=== PATIENT | female | born 1945 | race Caucasian/White ===

== ENCOUNTER 2020-10-24 20:27 | Inpatient (IN) | payer MEDICARE ==
[~2020-10-24] VITALS: Ht 154.9 cm; Wt 109.7 kg
--- NOTE | 2020-10-24 20:51 | PHYS DOC ---
Past History Past Medical History: A-Fib, Anemia, Anxiety, Arthritis, CAD, CHF, Diabetes General Adult EDM: Chief Complaint: DYSPNEA/RESPIRATOY DISTRESS HPI: HPI: ".. I ve been feeling bad .. the last two weeks.. been short of breath.. like when I had Afib... tonight my heart is really fast.. and I am more short of breath..." Patient is a 75 year old female who presents with above hx and complaints of dyspnea, fatigue, malaise, rapid heart rate, irregular heart rate, and weakness. Patient states she has had a history of A. fib or irregular heart rate in the past. Has been taking Eliquis. No history of changes in meds. No excessive caffeine use. Patient does have a history of anemia, diabetes, CHF and arthritis. No recent travel. No specific ill contacts.. Patient normally follows with Dr. Maryjane Rosen as a primary. . Review of Systems: Review of Systems: Constitutional: Denies fever or chills Eyes: Denies change in visual acuity HENT: Denies nasal congestion or sore throat Respiratory: Denies cough or shortness of breath Cardiovascular: Complaints of chest discomfort and irregular rhythm . GI: Denies abdominal pain, nausea, vomiting, bloody stools or diarrhea : Denies dysuria Musculoskeletal: Denies back pain or joint pain Integument: Denies rash Neurologic: Denies headache, focal weakness or sensory changes Endocrine: Denies polyuria or polydipsia Lymphatic: Denies swollen glands Psychiatric: Denies depression or anxiety Family History: Family History: Noncontributory to presentation Current Medications: Current Meds: See nursing for home meds Allergies: Allergies: No known drug allergies Physical Exam: PE: Constitutional: Moderate acute distress, non-toxic appearance. [] HENT: Normocephalic, atraumatic, bilateral external ears normal, oropharynx moist, no oral exudates, nose normal. [] Eyes: PERRLA, EOMI, conjunctiva normal, no discharge. Glasses Neck: Normal range of motion, no tenderness, supple, no stridor. [] Cardiovascular: Irregular heart rate and irregular rhythm, no murmur [] PMI to the left. Monitor at bedside shows A. fib with rapid ventricular response of 120's Lungs & Thorax: Bilateral breath sounds equal apex and basilar crackles on auscultation [] Abdomen: Bowel sounds decreased, soft, no tenderness, no masses, no pulsatile masses. Obese. Skin: Warm, dry, no erythema, no rash. [] Back: No tenderness, no CVA tenderness. [] Extremities: No tenderness, no cyanosis, no clubbing, ROM intact, no edema. [] Neurologic: Alert and oriented X 3, normal motor function, normal sensory function, no focal deficits noted. [] Psychologic: Affect normal, judgement normal, mood normal. [] Current Patient Data: Vital Signs: Vital Signs Date Time Temp Pulse Resp B/P (MAP) Pulse Ox O2 Delivery O2 Flow Rate FiO2 10/24/20 20:47 98.4 103 22 162/78 (106) 98 Room Air EKG: EKG: [] Radiology/Procedures: Radiology/Procedures: [][address] [address] IMAGING REPORT Signed PATIENT: LISBET COBB ACCOUNT: [id number] : 1945 LOCATION: ER AGE: 75 SEX: F EXAM STATUS: REG ER ORD. PHYSICIAN: EDILIA CÁRDENAS MD REASON: dyspnea PROCEDURE: PORTABLE CHEST 1V Chest AP portable 10/24/2020. Reason for exam: Dyspnea. There is no consolidation, but there is some haziness especially on the right, and early infiltrate or edema is possible. No pleural fluid is seen. The heart is enlarged. IMPRESSION: Cardiomegaly. Mild pulmonary haziness on the right. Electronically signed by: Anastasia Patel Jr., MD (10/24/2020 9:44 PM) [facility] DICTATED AND SIGNED BY: ANASTASIA PATEL Jr, MD DATE: 10/24/202142 CC: EDILIA CÁRDENAS MD; NON,STAFF ~MTH0 0 Heart Score: C/O Chest Pain: No HEART Score for Chest Pain: HEART Score for Chest Pain Response (Comments) Value History Moderately Suspicious 1 ECG Nonspecific Repolarizatio 1 Age > 65 2 Risk Factors 1 or 2 Risk Factors 1 Total 5 Risk Factors: Risk Factors: DM, Current or recent (<one month) smoker, HTN, HLP, family history of CAD, obesity. Risk Scores: Score 0 - 3: 2.5% MACE over next 6 weeks - Discharge Home Score 4 - 6: 20.3% MACE over next 6 weeks - Admit for Clinical Observation Score 7 - 10: 72.7% MACE over next 6 weeks - Early Invasive Strategies Course & Med Decision Making: Course & Med Decision Making Pertinent Labs and Imaging studies reviewed. (See chart for details) Discussed presentation, testing and tx. plan with Wayne Aquino- Admit with cardiology consult. Impression:: 1. Chest pain 2. A. fib with rapid ventricular response 3. CHF BNP 1206 4. Anemia hemoglobin 8.6 5. Diabetes glucose 180 6. Urinary tract infection [] Dragon Disclaimer: Dragon Disclaimer: This electronic medical record was generated, in whole or in part, using a voice recognition dictation system. EDILIA CÁRDENAS MD Oct 24, 2020 20:51
[2020-10-24] MEDS ORDERED: dilTIAZem VIAL 125 MG in IV NORMAL SALINE 100ML 100 ML IV ONE (21:30)
[2020-10-24] MEDS ORDERED: ASPIRIN CHEWABLE 81 MG TABLET. PO ONE (21:30)
[2020-10-24] MEDS ORDERED: dilTIAZem 25 MG/5 ML VIAL IVP ONE ×2 (21:30)
[2020-10-24] MEDS ORDERED: IV RINGERS SOLUTION,LACTATED 1,000 ML IV SCH (21:30)
--- NOTE | 2020-10-24 21:46 | RAD ---
Chest AP portable 10/24/2020. Reason for exam: Dyspnea. There is no consolidation, but there is some haziness especially on the right, and early infiltrate o r edema is possible. No pleural fluid is seen. The heart is enlarged. IMPRESSION: Cardiomegaly. Mild pulmonary haziness on the right. Electronically signed by: Rafal Patel Jr., MD (10/24/2020 9:44 PM) [facility]
[2020-10-24 21:53] LABS: BASO % 1 % (0-3); EOS # 0.1 x10^3/uL (0.0-0.7); EOS % 1 % (0-3); HEMATOCRIT 27.4 % (36.0-47.0); HEMOGLOBIN 8.6 g/dL (12.0-15.5); LYMPH % 12 % (24-48); MEAN CORPUSCULAR HEMOGLOBIN 27 pg (25-35); MEAN CORPUSCULAR HGB CONC 31 g/dL (31-37); MEAN CORPUSCULAR VOLUME 87 fL (79-100); MONO # 0.8 x10^3/uL (0.0-1.1); MONO % 9 % (0-9); NEUT # 6.5 x10^3uL (1.8-7.7); NEUT % 77 % (31-73); PLATELET COUNT 228 x10^3/uL (140-400); RED BLOOD COUNT 3.16 x10^6/uL (3.50-5.40); RED CELL DISTRIBUTION WIDTH 16.7 % (11.5-14.5); WHITE BLOOD COUNT 8.4 x10^3/uL (4.0-11.0)
[2020-10-24 22:02] LABS: BARBITURATES NEG (NEG); BENZODIAZEPINES NEG (NEG); CANNABINOIDS NEG (NEG); COCAINE NEG (NEG); METHADONE NEG (NEG); OPIATES NEG (NEG); PHENCYCLIDINE NEG (NEG)
[2020-10-24 22:04] LABS: CALCIUM 9.4 mg/dL (8.5-10.1); GFR 53.9; POTASSIUM 4.1 mmol/L (3.5-5.1)
[2020-10-24 22:05] LABS: BILIRUBIN,URINE NEG (NEG); CLARITY,URINE CLEAR; COLOR,URINE YELLOW; GLUCOSE,URINE NEG (NEG); NITRITE,URINE NEG (NEG)
[2020-10-24 22:06] LABS: BACTERIA,URINE MOD /HPF (0-FEW); RBC,URINE OCC /HPF (0-2); SQUAMOUS EPITHELIAL CELL,UR MOD /LPF; WBC,URINE >40 /HPF (0-4)
[2020-10-24 22:07] LABS: AMPHETAMINE/METHAMPHETAMINE NEG (NEG)
[2020-10-24 22:23] LABS: ALBUMIN 3.9 g/dL (3.4-5.0); DIRECT BILIRUBIN 0.1 mg/dL (0.0-0.2); MAGNESIUM 1.6 mg/dL (1.8-2.4); TOTAL BILIRUBIN 0.3 mg/dL (0.2-1.0)
[2020-10-24] MEDS ORDERED: IV NORMAL SALINE 100ML 100 ML ONE (22:29)
[2020-10-24] MEDS ORDERED: ONDANSETRON PF 4 MG/2 ML VIAL. IVP PRN (23:45)
[2020-10-24] MEDS ORDERED: ACETAMINOPHEN 325 MG TABLET PO PRN ×2 (23:45)
[2020-10-24] MEDS ORDERED: diphenhydrAMINE ORAL ELIXIR 12.5 MG/5 ML ML PO PRN (23:45)
[2020-10-24] MEDS ORDERED: diphenhydrAMINE HCL 25 MG CAPSULE PO PRN (23:45)
[2020-10-24] MEDS ORDERED: MORPHINE SULFATE 2 MG/ML DISP.SYRIN. IVP PRN (23:45)
[2020-10-25] VITALS (21 sets, daily range): BP systolic 120–159; BP diastolic 41–84
[2020-10-25] MEDS ORDERED: IV NORMAL SALINE 50ML 50 ML ONE (00:25)
[2020-10-25] MEDS ORDERED: cefTRIAXone SODIUM 1 GM VIAL ONE (00:25)
[2020-10-25] MEDS ORDERED: diphenhydrAMINE 50 MG/ML VIAL IV ONE (00:30)
[2020-10-25] MEDS ORDERED: dilTIAZem VIAL 125 MG in IV NORMAL SALINE 100ML 100 ML IV ONE (00:30)
[2020-10-25] MEDS ORDERED: FUROSEMIDE 40 MG/4 ML VIAL IVP ONE (00:30)
[2020-10-25 00:57] LABS: CALCIUM 9.1 mg/dL (8.5-10.1); GFR 53.9; POTASSIUM 4.1 mmol/L (3.5-5.1)
--- NOTE | 2020-10-25 03:38 | EKG ---
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
[2020-10-25] MEDS ORDERED: MAGNESIUM SULFATE 2GM 50 ML IV ONE (04:30)
[2020-10-25] MEDS ORDERED: APIX5TAB3 PO (05:39)
[2020-10-25] MEDS ORDERED: LEVO50TA5 PO (05:39)
[2020-10-25] MEDS ORDERED: CARV6.2541 PO (05:39)
[2020-10-25] MEDS ORDERED: FAMO40TA4 PO (05:39)
[2020-10-25] MEDS ORDERED: LOVA20TA2 PO (05:39)
[2020-10-25] MEDS ORDERED: MIRT7.5T8 PO (05:39)
[2020-10-25] MEDS ORDERED: PIOG15TA42 PO (05:39)
[2020-10-25] MEDS: ASPIRIN CHEWABLE 81 MG TABLET. PO SCH (07:57)
[2020-10-25] MEDS ORDERED: IPRATRPIUM/ALBUTEROL 0.5/2.5MG 3 ML NEBU. NEB SCH (08:00)
[2020-10-25] MEDS: IPRATROPIUM/ALBUTEROL 20/100mcg/INH INHALER. INH SCH ×4 (08:00→20:51)
[2020-10-25 10:04] LABS: BASO # 0.1 x10^3/uL (0.0-0.2); BASO % 1 % (0-3); EOS # 0.1 x10^3/uL (0.0-0.7); EOS % 1 % (0-3); HEMATOCRIT 25.8 % (36.0-47.0); HEMOGLOBIN 8.2 g/dL (12.0-15.5); LYMPH # 1.1 x10^3/uL (1.0-4.8); LYMPH % 13 % (24-48); MEAN CORPUSCULAR HEMOGLOBIN 27 pg (25-35); MEAN CORPUSCULAR HGB CONC 32 g/dL (31-37); MEAN CORPUSCULAR VOLUME 86 fL (79-100); MONO # 1.1 x10^3/uL (0.0-1.1); MONO % 12 % (0-9); NEUT # 6.2 x10^3uL (1.8-7.7); NEUT % 73 % (31-73); PLATELET COUNT 244 x10^3/uL (140-400); WHITE BLOOD COUNT 8.5 x10^3/uL (4.0-11.0)
[2020-10-25 12:32] LABS: GFR 53.9; POTASSIUM 3.6 mmol/L (3.5-5.1)
--- NOTE | 2020-10-25 19:02 | HP ---
ADMIT DATE: 10/25/2020 HISTORY OF PRESENT ILLNESS: The patient is a 75-year-old female patient who came to the Emergency Room complaining that she is feeling progressively short of breath for the last 2 weeks. She denied any chest pain. Did complain of orthopnea and paroxysmal nocturnal dyspnea. She stated that she has been sleeping in her recliner, cannot sleep in her bed. She also complained of malaise and palpitation. The patient has had a history of AFib in the past and has been on Eliquis. There is no history of any change in medication and excessive caffeine. Does have a history of anemia, type 2 diabetes, and congestive heart failure. Denied any recent travel or specific ill contact. The patient follows with Dr. Susan Hutson as a primary care physician. She was extensively evaluated in the Emergency Room and apparently her EKG showed that she was in atrial fibrillation with rapid ventricular response and was admitted with congestive heart failure, anemia, and possible urinary tract infection. She has had extensive investigation in the Emergency Room including a CBC. Her chemistry showed she has hyperglycemia as well as elevated beta natriuretic peptide. Her D-dimer was only 0.32. Urinalysis showed that there was a trace of leukocyte esterase, no rbc's, more than 40 wbc's and moderate amount of bacteria and toxic screen was essentially negative. Her chest x-ray showed that the patient has cardiomegaly and mild pulmonary haziness on the right, indicating an early infiltrate or edema is possible. No pleural fluid is seen. The heart is enlarged. PAST MEDICAL HISTORY: Significant for hypertension, hyperlipidemia, hemorrhoids, osteoarthritis, history of right lower extremity DVT, urinary incontinence, and type 2 diabetes. PAST SURGICAL HISTORY: Significant for cholecystectomy, cataract extraction, tonsillectomy, hysterectomy, hemorrhoidectomy and right index finger tumor removal. FAMILY HISTORY: Noncontributory. SOCIAL HISTORY: She is single, never , has 1 son. She does not smoke, drink alcohol or use any recreational drugs. ALLERGIES: She has no known drug allergies. MEDICATIONS: She is currently on following medications: Apixaban 5 mg twice a day, lovastatin 20 mg at bedtime, carvedilol 6.25 mg once a day, mirtazapine 7.5 mg at bedtime, famotidine 40 mg once a day, pioglitazone ____ mg at bedtime, levothyroxine sodium 50 mcg once a day. FAMILY HISTORY: She has 4 sisters alive and one stage IV of breast cancer. One of her sisters has diabetes mellitus. Her father at the age of 90. Mother in her 70s. PHYSICAL EXAMINATION: GENERAL: On arrival to the Emergency Room, she was pale, but no jaundice, cyanosis or thyromegaly. No jugular venous distention. No lower limb edema. VITAL SIGNS: Her heart rate was 103, blood pressure 162/78, temperature was 98.4, respiratory rate 22, and oxygen saturation was 98% on room air. HEAD, EYES, EARS, NOSE AND THROAT: Showed normocephalic, atraumatic. NECK: Supple. HEART: Showed normal first and second heart sounds. No gallop, rub or murmur. CHEST: Clear to auscultation. No crepitation or rhonchi. ABDOMEN: Distended, soft, nontender. No guarding or rigidity. No organomegaly. All hernial orifice intact. Bowel sounds normal. NEUROLOGIC: She is awake, alert, responding appropriately. All cranial nerves intact. EXTREMITIES: She moves extremities without difficulty. LABORATORY DATA: Her lab work on arrival to the Emergency Room showed that her white cell count was 8400, hemoglobin 8.6, hematocrit 27.4, MCV 87 and platelet count 228,000. Her chemistry showed a serum sodium 141, potassium 4.1, chloride 104, bicarbonate 29, anion gap of 8, BUN 20, creatinine 1, estimated GFR was 54 mL per minute. Her glucose 180, calcium was 9.4, magnesium was 1.6. Total bilirubin, AST, ALT, alkaline phosphatase were normal. Total protein was 8, albumin was 3.9. Lipase was 74. Her prothrombin time, INR and aPTT are normal. Her D-dimer was 0.32. Urinalysis showed the urine was yellow, clear with a pH of 6, specific gravity 1.025. There was a small amount of protein. The urine was negative for glucose, ketones, trace of blood, negative for nitrite and bilirubin. There was trace of leukocyte esterase. The urine was negative for rbc's. There were more than 40 wbc's and moderate amount of bacteria. Her toxic screen was negative. ASSESSMENT AND PLAN: The patient was admitted with progressive shortness of breath, was found to be in atrial fibrillation with rapid ventricular response, for which she was given a bolus of Cardizem and started on Cardizem drip. She has hypomagnesemia for which she received 2 grams of magnesium sulfate and for her UTI and possible pneumonia, she was started on ceftriaxone, was admitted for further evaluation and treatment. We will obviously reconcile all her medication and consulted the admissions assistant and decide on further management accordingly. LUDY VICTOR MD DR: EVENS/blane JOB#: [id number] / [id number]
[2020-10-25] MEDS: LACTOBACILLUS RHAMNOSUS GG 1 CAPSULE. PO SCH (20:49)
[2020-10-25] MEDS: PIOGLITAZONE 15 MG TABLET. PO SCH (20:49)
[2020-10-25] MEDS: MIRTAZAPINE 7.5 MG TABLET. PO SCH (20:49)
[2020-10-25] MEDS: ATORVASTATIN CALCIUM 10 MG TABLET. PO SCH (20:50)
[2020-10-25] MEDS: APIXABAN 5 MG TABLET. PO SCH (20:51)
[2020-10-26] VITALS (13 sets, daily range): BP systolic 128–163; BP diastolic 52–84
[2020-10-26] MEDS: LEVOTHYROXINE 50 MCG TABLET PO SCH (06:07)
[2020-10-26] MEDS: IPRATROPIUM/ALBUTEROL 20/100mcg/INH INHALER. INH SCH ×4 (08:00→20:18)
[2020-10-26] MEDS ORDERED: CARVEDILOL 6.25 MG TABLET PO SCH (08:00)
--- NOTE | 2020-10-26 08:44 | PDOC2 ---
GEORGES SOLITARIO GAS [employer]KER 10/26/20 0844: CARDIAC CONSULT DATE OF CONSULT DOS: DATE: 10/26/20 TIME: 08:29 REASON FOR CONSULT Reason for Consult AFIB RVR, CHF REFERRING PHYSICIAN Referring Physician Dr. Black SOURCE Source: Chart review, Patient HPI History of Present Illness This is a 75 yo female who presented secondary to palpitations and shortness of breath. Has been short of breath for the last couple of weeks. Has a history of AFIB, was noted in RVR and place on Cardizem gtt. Does not follow with security monitor, but is on Eliquis for stroke prophylaxis. Remains in AFIB, but r ate is now controlled. PAST MEDICAL HISTORY Cardiovascular: AFIB, CHF, HTN, hyperipidemia GI: GERD Heme/Onc: Anemia NOS Psych: Depression Endocrine: Diabetes, Hypothyroidism PAST SURGICAL HISTORY Past Surgical History: Cholecystectomy, Total knee replacement (bilateral ) FAMILY HISTORY Family History: Coronary Artery Disease, Diabetes, Other (COPD ) SOCIAL HISTORY Smoke: No ALCOHOL: none Drugs: None Lives: Long-Term (Assisted Living ) CURRENT MEDICATIONS Current Medications Current Medications Aspirin (Aspirin Chewable) 324 mg 1X ONCE PO Last administered on 10/24/20at 22:43; Start 10/24/20 at 21:30; Stop 10/24/20 at 21:31; Status DC Lactated Ringer's 1,000 ml @ 100 mls/hr Q10H IV ; Start 10/24/20 at 21:30; Stop 10/25/20 at 07:29; Status DC Diltiazem HCl 125 mg/Sodium Chloride 125 ml @ 5 mls/hr 1X ONCE IV Last administered on 10/24/20at 22:42; Start 10/24/20 at 21:30; Stop 10/25/20 at 22:29; Status DC Diltiazem HCl (Cardizem Iv Push) 10 mg 1X ONCE IVP Last administered on 10/24/20at 22:43; Start 10/24/20 at 21:30; Stop 10/24/20 at 21:31; Status DC Diltiazem HCl (Cardizem Iv Push) 10 mg 1X ONCE IVP Last administered on 10/24/20at 23:05; Start 10/24/20 at 21:30; Stop 10/24/20 at 21:31; Status DC Sodium Chloride 100 ml @ As Directed STK-MED ONCE .ROUTE ; Start 10/24/20 at 22:29; Stop 10/24/20 at 22:30; Status DC Diltiazem HCl (Cardizem) 125 mg STK-MED ONCE IV ; Start 10/24/20 at 22:30; Stop 10/24/20 at 22:31; Status DC Ondansetron HCl (Zofran) 4 mg PRN Q4HRS PRN IVP NAUSEA/VOMITING; Start 10/24/20 at 23:45; Stop 10/25/20 at 23:44; Status DC Morphine Sulfate (Morphine 2mg Syringe) 2 mg PRN Q2HR PRN IVP PAIN; Start 10/24/20 at 23:45; Stop 10/25/20 at 23:44; Status DC Acetaminophen (Tylenol) 650 mg PRN Q4HRS PRN PO FEVER > 100.3'F; Start 10/24/20 at 23:45; Stop 10/25/20 at 23:44; Status DC Albuterol/ Ipratropium (Duoneb) 3 ml RTQID NEB ; Start 10/25/20 at 08:00; Stop 10/25/20 at 07:33; Status DC Aspirin (Aspirin Chewable) 81 mg DAILYWBKFT PO Last administered on 10/25/20at 07:57; Start 10/25/20 at 08:00 Ceftriaxone Sodium 1 gm/ Sodium Chloride 50 ml @ 100 mls/hr QHS IV Last administered on 10/25/20at 20:51; Start 10/25/20 at 00:30 Diltiazem HCl 125 mg/Sodium Chloride 125 ml @ 5 mls/hr 1X ONCE IV Last administered on 10/25/20at 00:30; Start 10/25/20 at 00:30; Stop 10/26/20 at 01:29; Status DC Furosemide (Lasix) 40 mg 1X ONCE IVP Last administered on 10/25/20at 04:01; Start 10/25/20 at 00:30; Stop 10/25/20 at 00:31; Status DC Diphenhydramine HCl (Benadryl) 25 mg 1X ONCE IV ; Start 10/25/20 at 00:30; Stop 10/25/20 at 00:31; Status DC Acetaminophen (Tylenol) 650 mg PRN 1X PRN PO PRIOR TO TRANSFUSION; Start 10/24/20 at 23:45; Stop 10/25/20 at 23:44; Status DC Diphenhydramine HCl (Benadryl Oral Elixir) 12.5 mg PRN 1X PRN PO PRIOR TO TRANSFUSION; Start 10/24/20 at 23:45; Stop 10/25/20 at 23:44; Status DC Diphenhydramine HCl (Benadryl) 25 mg PRN 1X PRN PO PRIOR TO TRANSFUSION; Start 10/24/20 at 23:45; Stop 10/25/20 at 23:44; Status DC Sodium Chloride 50 ml @ As Directed STK-MED ONCE .ROUTE ; Start 10/25/20 at 00:25; Stop 10/25/20 at 00:25; Status DC Ceftriaxone Sodium (Rocephin) 1 gm STK-MED ONCE .ROUTE ; Start 10/25/20 at 00:25; Stop 10/25/20 at 00:25; Status DC Magnesium Sulfate 50 ml @ 25 mls/hr 1X ONCE IV Last administered on 10/25/20at 04:46; Start 10/25/20 at 04:30; Stop 10/25/20 at 06:29; Status DC Albuterol/ Ipratropium (Combivent Respimat 20-100 Mcg) 1 puff RTQID INH Last administered on 10/25/20at 20:51; Start 10/25/20 at 08:00 Lactobacillus Rhamnosus (Culturelle) 1 cap BID PO Last administered on 10/25/20at 20:49; Start 10/25/20 at 21:00 Apixaban (Eliquis) 5 mg BID PO Last administered on 10/25/20at 20:51; Start 10/25/20 at 21:00 Carvedilol (Coreg) 6.25 mg BIDWMEALS PO ; Start 10/26/20 at 08:00 Levothyroxine Sodium (Synthroid) 50 mcg DAILY06 PO Last administered on at 06:07; Start 10/26/20 at 06:00 Mirtazapine (Remeron) 7.5 mg QHS PO Last administered on 10/25/20at 20:49; Start 10/25/20 at 21:00 Pioglitazone HCl (Actos) 15 mg HS PO Last administered on 10/25/20at 20:49; Start 10/25/20 at 21:00 Famotidine (Pepcid) 40 mg DAILY PO ; Start 10/26/20 at 09:00 Atorvastatin Calcium (Lipitor) 5 mg QHS PO Last administered on 10/25/20at 20:50; Start 10/25/20 at 21:00 Active Scripts Active Reported Actos (Pioglitazone Hcl) 15 Mg Tablet 1 Tab PO HS Carvedilol (Carvedilol) 6.25 Mg Tablet 6.25 Mg PO BIDWMEALS Levothyroxine Sodium 50 Mcg Tablet 1 Tab PO DAILY06 Lovastatin 20 Mg Tablet 1 Tab PO HS Eliquis (Apixaban) 5 Mg Tablet 5 Mg PO BID Mirtazapine 7.5 Mg Tablet 1 Tab PO QHS Famotidine 40 Mg Tablet 1 Tab PO DAILY ALLERGIES Allergies: Coded Allergies: No Known Drug Allergies (Unverified , 10/24/20) ROS Review of Systems 14 point ROS conducted with pertinent positives noted above in HPI PHYSICAL EXAM General: Alert, Oriented X3, Cooperative, No acute distress HEENT: Atraumatic Lungs: Other (diminished bases) Abdomen: Soft, Other (obese ) Extremities: Normal pulses, Other (trace bilateral LE edema ) Neuro: Normal speech, Sensation intact Psych/Mental Status: Mental status NL, Mood NL MUSCULOSKELETAL: Osteoarthritic changes both hands VITALS Vital Signs Vital Signs Date Time Temp Pulse Resp B/P (MAP) Pulse Ox O2 Delivery O2 Flow Rate FiO2 10/26/20 07:00 70 20 135/56 (82) 99 Nasal Cannula 2.0 10/25/20 16:00 98.4 LABS LABS Laboratory Tests Test 10/24/20 21:15 10/24/20 21:38 10/25/20 00:24 10/25/20 09:45 Urine Collection Type Unknown Urine Color Yellow Urine Clarity Clear Urine pH 6.0 Urine Specific [place] 1.025 Urine Protein 100 mg/dl (NEG-TRACE) Urine Glucose (UA) Neg mg/dL (NEG) Urine Ketones (Stick) Neg mg/dL (NEG) Urine Blood Trace (NEG) Urine Nitrite Neg (NEG) Urine Bilirubin Neg (NEG) Urine Urobilinogen Dipstick 1.0 mg/dL (0.2 mg/dL) Urine Leukocyte Esterase Trace (NEG) Urine RBC Occ /HPF (0-2) Urine WBC >40 /HPF (0-4) Urine Squamous Epithelial Cells Mod /LPF Urine Bacteria Mod /HPF (0-FEW) Urine Opiates Screen Neg (NEG) Urine Methadone Screen Neg (NEG) Urine Barbiturates Neg (NEG) Urine Phencyclidine Screen Neg (NEG) Urine Amphetamine/Methamphetamine Neg (NEG) Urine Benzodiazepines Screen Neg (NEG) Urine Cocaine Screen Neg (NEG) Urine Cannabinoids Screen Neg (NEG) Urine Ethyl Alcohol Neg (NEG) White Blood Count 8.4 x10^3/uL (4.0-11.0) 8.5 x10^3/uL (4.0-11.0) Red Blood Count 3.16 x10^6/uL (3.50-5.40) 3.00 x10^6/uL (3.50-5.40) Hemoglobin 8.6 g/dL (12.0-15.5) 8.2 g/dL (12.0-15.5) Hematocrit 27.4 % (36.0-47.0) 25.8 % (36.0-47.0) Mean Corpuscular Volume 87 fL (79-100) 86 fL (79-100) Mean Corpuscular Hemoglobin 27 pg (25-35) 27 pg (25-35) Mean Corpuscular Hemoglobin Concent 31 g/dL (31-37) 32 g/dL (31-37) Red Cell Distribution Width 16.7 % (11.5-14.5) 17.0 % (11.5-14.5) Platelet Count 228 x10^3/uL (140-400) 244 x10^3/uL (140-400) Neutrophils (%) (Auto) 77 % (31-73) 73 % (31-73) Lymphocytes (%) (Auto) 12 % (24-48) 13 % (24-48) Monocytes (%) (Auto) 9 % (0-9) 12 % (0-9) Eosinophils (%) (Auto) 1 % (0-3) 1 % (0-3) Basophils (%) (Auto) 1 % (0-3) 1 % (0-3) Neutrophils # (Auto) 6.5 x10^3uL (1.8-7.7) 6.2 x10^3uL (1.8-7.7) Lymphocytes # (Auto) 1.0 x10^3/uL (1.0-4.8) 1.1 x10^3/uL (1.0-4.8) Monocytes # (Auto) 0.8 x10^3/uL (0.0-1.1) 1.1 x10^3/uL (0.0-1.1) Eosinophils # (Auto) 0.1 x10^3/uL (0.0-0.7) 0.1 x10^3/uL (0.0-0.7) Basophils # (Auto) 0.0 x10^3/uL (0.0-0.2) 0.1 x10^3/uL (0.0-0.2) Prothrombin Time 11.6 SEC (9.4-11.4) Prothromb Time International Ratio 1.1 (0.9-1.1) Activated Partial Thromboplast Time 27 SEC (23-33) D-Dimer (Jennifer) 0.32 mg/L (0.00-0.50) Sodium Level 141 mmol/L (136-145) 141 mmol/L (136-145) Potassium Level 4.1 mmol/L (3.5-5.1) 4.1 mmol/L (3.5-5.1) Chloride Level 104 mmol/L (98-107) 105 mmol/L (98-107) Carbon Dioxide Level 29 mmol/L (21-32) 26 mmol/L (21-32) Anion Gap 8 (6-14) 10 (6-14) Blood Urea Nitrogen 20 mg/dL (7-20) 20 mg/dL (7-20) Creatinine 1.0 mg/dL (0.6-1.0) 1.0 mg/dL (0.6-1.0) Estimated GFR (Cockcroft-Gault) 53.9 53.9 Glucose Level 180 mg/dL (70-99) 180 mg/dL (70-99) Calcium Level 9.4 mg/dL (8.5-10.1) 9.1 mg/dL (8.5-10.1) Magnesium Level 1.6 mg/dL (1.8-2.4) Total Bilirubin 0.3 mg/dL (0.2-1.0) Direct Bilirubin 0.1 mg/dL (0.0-0.2) Aspartate Amino Transf (AST/SGOT) 19 U/L (15-37) Alanine Aminotransferase (ALT/SGPT) 23 U/L (14-59) Alkaline Phosphatase 86 U/L (46-116) Creatine Kinase 101 U/L (26-192) Troponin I Quantitative 0.017 ng/mL (0-0.055) < 0.017 ng/mL (0-0.055) LU-Xgc-H-Type Natriuretic Peptide 1206 pg/mL (0-449) Total Protein 8.0 g/dL (6.4-8.2) Albumin 3.9 g/dL (3.4-5.0) Lipase 74 U/L (73-393) Thyroid Stimulating Hormone (TSH) 4.130 uIU/mL (0.358-3.740) Test 10/25/20 12:05 Sodium Level 142 mmol/L (136-145) Potassium Level 3.6 mmol/L (3.5-5.1) Chloride Level 105 mmol/L (98-107) Carbon Dioxide Level 29 mmol/L (21-32) Anion Gap 8 (6-14) Blood Urea Nitrogen 20 mg/dL (7-20) Creatinine 1.0 mg/dL (0.6-1.0) Estimated GFR (Cockcroft-Gault) 53.9 Glucose Level 151 mg/dL (70-99) Calcium Level 9.0 mg/dL (8.5-10.1) ASSESSMENT/PLAN Assessment/Plan 1. PAFIB with RVR; rate now controlled, off Cardizem gtt. Remains in AFIB 2. Acute on chronic probable diastolic CHF 3. Hypomagnesemia 4. Hypertension; controlled 5. Hyperlipidemia 6. Anemia Recommendations Mild diuresis Convert Coreg to metoprolol for better rate control Continue Eliquis for stroke prophylaxis Replace Mg Outpatient echo as arranged Consider outpatient event monitor to guide therapy and ischemic evaluation Follow up with Dr. Harp as scheduled. BI HARP MD 10/26/20 9648: CARDIAC CONSULT ASSESSMENT/PLAN Assessment/Plan Patient seen and examined. Agree with above nurse practitioner note. Supportive care. GEORGES SOLITARIO APRN Oct 26, 2020 08:44 BI HARP MD Oct 26, 2020 17:05
[2020-10-26] MEDS ORDERED: MAGNESIUM SULFATE 2GM 50 ML IV ONE (08:45)
[2020-10-26] MEDS ORDERED: FUROSEMIDE 40 MG/4 ML VIAL IVP ONE (09:00)
[2020-10-26] MEDS ORDERED: POTASSIUM CHLORIDE 20 MEQ TABLET.ER. PO ONE (09:00)
[2020-10-26] MEDS: LACTOBACILLUS RHAMNOSUS GG 1 CAPSULE. PO SCH ×2 (10:21→20:15)
[2020-10-26] MEDS: FAMOTIDINE 20 MG TABLET PO SCH (10:21)
[2020-10-26] MEDS: ASPIRIN CHEWABLE 81 MG TABLET. PO SCH (10:21)
[2020-10-26] MEDS: METOPROLOL TART IMMED RELEASE 25 MG TABLET. PO SCH ×2 (10:21→20:16)
[2020-10-26] MEDS: APIXABAN 5 MG TABLET. PO SCH ×2 (10:22→20:16)
[2020-10-26] MEDS: ATORVASTATIN CALCIUM 10 MG TABLET. PO SCH (20:16)
[2020-10-26] MEDS: MIRTAZAPINE 7.5 MG TABLET. PO SCH (20:16)
[2020-10-26] MEDS: PIOGLITAZONE 15 MG TABLET. PO SCH (20:16)
[2020-10-26] MEDS: ACETAMINOPHEN 325 MG TABLET PO PRN (20:16)
[2020-10-27] MEDS: LEVOTHYROXINE 50 MCG TABLET PO SCH (05:36)
[2020-10-27] MEDS: ACETAMINOPHEN 325 MG TABLET PO PRN (05:36)
[2020-10-27 06:02] VITALS: BP 149/79
[2020-10-27 07:00] LABS: HEMOGLOBIN 7.7 g/dL (12.0-15.5); RED BLOOD COUNT 2.8 x10^6/uL (3.50-5.40); RED CELL DISTRIBUTION WIDTH 16.7 % (11.5-14.5); WHITE BLOOD COUNT 8.8 x10^3/uL (4.0-11.0)
[2020-10-27 07:18] LABS: ALBUMIN 3.1 g/dL (3.4-5.0); ALBUMIN/GLOBULIN RATIO 0.9 (1.0-1.7); CALCIUM 8.8 mg/dL (8.5-10.1); CREATININE 1.1 mg/dL (0.6-1.0); GFR 48.3; POTASSIUM 4.1 mmol/L (3.5-5.1); TOTAL BILIRUBIN 0.4 mg/dL (0.2-1.0); TOTAL PROTEIN 6.7 g/dL (6.4-8.2)
[2020-10-27] MEDS: LACTOBACILLUS RHAMNOSUS GG 1 CAPSULE. PO SCH (07:58)
[2020-10-27] MEDS: APIXABAN 5 MG TABLET. PO SCH (07:58)
[2020-10-27] MEDS: METOPROLOL TART IMMED RELEASE 25 MG TABLET. PO SCH (07:58)
[2020-10-27] MEDS: ASPIRIN CHEWABLE 81 MG TABLET. PO SCH (07:58)
[2020-10-27] MEDS: FAMOTIDINE 20 MG TABLET PO SCH (07:58)
--- NOTE | 2020-10-27 07:59 | PDOC ---
CARDIO Progress Notes Date & Time Date of Service DATE: 10/27/20 TIME: 07:58 Time of Evaluation 07:58 Subjective Notes Feeling well. SOA improved. No chest pain or palpitations. Vitals Vitals Vital Signs Date Time Temp Pulse Resp B/P (MAP) Pulse Ox O2 Delivery O2 Flow Rate FiO2 10/27/20 06:02 98.7 80 25 149/79 (102) 98 Nasal Cannula 2.0 Weight Weight [ ] Input and Output I.O. Intake and Output 10/27/20 07:00 Intake Total 1340 ml Output Total 2650 ml Balance -1310 ml Intake Oral 1290 ml IV Total 50 ml Output Urine Total 2650 ml # Voids 1 # Bowel Movements 1 Laboratory Labs Laboratory Tests Test 10/25/20 09:45 10/25/20 12:05 10/27/20 06:27 White Blood Count 8.5 x10^3/uL (4.0-11.0) Red Blood Count 3.00 x10^6/uL (3.50-5.40) Hemoglobin 8.2 g/dL (12.0-15.5) Hematocrit 25.8 % (36.0-47.0) Mean Corpuscular Volume 86 fL (79-100) Mean Corpuscular Hemoglobin 27 pg (25-35) Mean Corpuscular Hemoglobin Concent 32 g/dL (31-37) Red Cell Distribution Width 17.0 % (11.5-14.5) Platelet Count 244 x10^3/uL (140-400) Neutrophils (%) (Auto) 73 % (31-73) Lymphocytes (%) (Auto) 13 % (24-48) Monocytes (%) (Auto) 12 % (0-9) Eosinophils (%) (Auto) 1 % (0-3) Basophils (%) (Auto) 1 % (0-3) Neutrophils # (Auto) 6.2 x10^3uL (1.8-7.7) Lymphocytes # (Auto) 1.1 x10^3/uL (1.0-4.8) Monocytes # (Auto) 1.1 x10^3/uL (0.0-1.1) Eosinophils # (Auto) 0.1 x10^3/uL (0.0-0.7) Basophils # (Auto) 0.1 x10^3/uL (0.0-0.2) Sodium Level 142 mmol/L (136-145) 141 mmol/L (136-145) Potassium Level 3.6 mmol/L (3.5-5.1) 4.1 mmol/L (3.5-5.1) Chloride Level 105 mmol/L (98-107) 103 mmol/L (98-107) Carbon Dioxide Level 29 mmol/L (21-32) 29 mmol/L (21-32) Anion Gap 8 (6-14) 9 (6-14) Blood Urea Nitrogen 20 mg/dL (7-20) 21 mg/dL (7-20) Creatinine 1.0 mg/dL (0.6-1.0) 1.1 mg/dL (0.6-1.0) Estimated GFR (Cockcroft-Gault) 53.9 48.3 Glucose Level 151 mg/dL (70-99) 123 mg/dL (70-99) Calcium Level 9.0 mg/dL (8.5-10.1) 8.8 mg/dL (8.5-10.1) BUN/Creatinine Ratio 19 (6-20) Total Bilirubin 0.4 mg/dL (0.2-1.0) Aspartate Amino Transf (AST/SGOT) 19 U/L (15-37) Alanine Aminotransferase (ALT/SGPT) 19 U/L (14-59) Alkaline Phosphatase 53 U/L (46-116) Total Protein 6.7 g/dL (6.4-8.2) Albumin 3.1 g/dL (3.4-5.0) Albumin/Globulin Ratio 0.9 (1.0-1.7) Microbiology Micro Microbiology 10/24/20 Urine Culture - Final, Complete Physical Exams HEENT: Neck Supple W Full Motion Chest: Symmetric Lungs: Other (diminished ) Abdomen: Soft N/T, Other (obese) Extremities: No Edema Neurology: alert, oriented, follow commands Assessment Assessment 1. PAFIB with RVR; rate now controlled, off Cardizem gtt. Remains in AFIB 2. Acute on chronic probable diastolic CHF; appear compensated 3. Hypomagnesemia; replaced 4. Hypertension; controlled 5. Hyperlipidemia 6. Anemia Recommendations Mild diuresis Convert Coreg to metoprolol for better rate control Continue Eliquis for stroke prophylaxis Replace Mg Outpatient echo as arranged Consider outpatient cardioversion if patient remains in AFIB. Follow up with Dr. Harp as scheduled. GEORGES SOLITARIO APRN Oct 27, 2020 07:59
[2020-10-27] MEDS: IPRATROPIUM/ALBUTEROL 20/100mcg/INH INHALER. INH SCH ×2 (08:00→12:00)
--- NOTE | 2020-10-27 09:10 | PN ---
DATE: 10/26/2020 SUBJECTIVE: The patient is sitting in her chair, slightly better than yesterday. She continued to have shortness of breath on exertion. She did receive IV Lasix this morning and she somewhat feels a little bit better. Her heart rate is much better controlled now and she is off the Cardizem drip. Her magnesium was replenished as well as potassium. PHYSICAL EXAMINATION: GENERAL: When I examined her this afternoon, she looked well and was clearly in no apparent respiratory distress, pale, but no jaundice, cyanosis or thyromegaly. No jugular venous distension. No limb edema. VITAL SIGNS: Her heart rate was 84, blood pressure was 138/64, temperature was 98.1, respiratory rate 20, and oxygen saturation was 96%. HEAD, EYES, EARS, NOSE AND THROAT: Showed normocephalic, atraumatic. NECK: Supple. HEART: Normal first and second heart sounds. No gallop or murmur. CHEST: Shows central trachea, equal bilateral expansion, air entry, vesicular sounds with bilateral basal crepitation. I could not appreciate any rhonchi. ABDOMEN: Distended, soft, nontender. NEUROLOGIC: She is awake, alert, responding appropriately. All cranial nerves are intact. She moves extremities without difficulty. She ambulates with a walker. Her intake was incompletely recorded, output was 1400 mL. LABORATORY DATA: As of this morning, her white cell count was 8500, hemoglobin 8, hematocrit 25, MCV 86 and platelet count 244,000. Her chemistry showed a serum sodium 142, potassium 3.6, chloride 106, bicarbonate 29, anion gap of 8, BUN 20, creatinine 1, estimated GFR was 54 mL per minute. Her glucose is 151 and calcium 9. Her 3 sets of cardiac enzymes that were all negative for acute myocardial infarction. ASSESSMENT: 1. Atrial fibrillation with rapid ventricular response, now rate controlled, off Cardizem drip. 2. Acute on chronic, probably diastolic congestive heart failure, hypomagnesemia, hypertension, hyperlipidemia and anemia. PLAN: To continue with diuresis. We will replace the magnesium and potassium, did consult physical and occupational therapy. She will be discharged tomorrow with home health with arrangement for outpatient event monitor and outpatient echocardiogram. LUDY VICTOR MD DR: EVENS/blane JOB#: [id number] / [id number]
[2020-10-27 10:36] VITALS: BP 125/57
[2020-10-27] MEDS ORDERED: METO25TA4 PO (12:53)
--- NOTE | 2020-10-27 13:06 | DISCH ---
HOME HEALTH DISCHARGE/MEDS DISCHARGE INFORMATION: Discharge Date: Oct 27, 2020 Final Diagnosis: Problems Medical Problems: (1) Chest pain Status: Acute Condition on Discharge: Stable CODE STATUS: Code Status: Full HOME HEALTH: Face to Face: I certify this patient is under my care and that I, or a nurse practitioner or physician's chef's assistant working with me, had a face to face encounter that meets the physician face to face encounter requirements with this patient on 10/27/2020 Medical Condition(s): CHF Long Term For: Admin/Educate Injections Physical Therapy For: Evalulation/Treatment Occupational Therapy For: Evaluation/Treatment POST DISCHARGE ORDERS: DIET AFTER DISCHARGE: Cardiac CERTIFICATION STATEMENT: Certification Statement: Based on the above finding, I certify that this patient is confined to the home and needs intermittent alf care, physical therapy and/or speech therapy, or continues to need occupational therapy.~ This patient is under my care, and I have initiated the establishment of the plan of care.~ This patient will be followed by myself or a community physician who will periodically review the plan of care. DISCHARGE MEDICATIONS: Home Meds Active Scripts Metoprolol Tartrate (METOPROLOL TARTRATE) 25 Mg Tablet, 1 TAB PO BID for AFIB for 30 Days, #60 TAB 1 Refill Prov:LUDY VICTOR MD 10/27/20 Reported Medications Pioglitazone Hcl (ACTOS) 15 Mg Tablet, 1 TAB PO HS for diabetes, TAB 0 Refills 10/25/20 Levothyroxine Sodium (LEVOTHYROXINE SODIUM) 50 Mcg Tablet, 1 TAB PO DAILY06 for hypothyroidism, TAB 10/25/20 Lovastatin (LOVASTATIN) 20 Mg Tablet, 1 TAB PO HS for lower cholesterol, TAB 10/25/20 Apixaban (ELIQUIS) 5 Mg Tablet, 5 MG PO BID for prevent blood clots, TAB 10/25/20 Mirtazapine (MIRTAZAPINE) 7.5 Mg Tablet, 1 TAB PO QHS for depression, TAB 0 Refills 10/25/20 Famotidine (FAMOTIDINE) 40 Mg Tablet, 1 TAB PO DAILY for GERD, TAB 10/25/20 Discontinued Reported Medications Carvedilol (CARVEDILOL ) 6.25 Mg Tablet, 6.25 MG PO BIDWMEALS for high blood pressure, TAB 10/25/20 LUDY VICTOR MD Oct 27, 2020 13:06
--- NOTE | 2020-10-27 13:30 | DS ---
DATE OF DISCHARGE: 10/25/2020 HISTORY/HOSPITAL COURSE: The patient is a 75-year-old female patient, who was admitted through the Emergency Room with a complaint of progressive shortness of breath for the last 2 weeks. She denied any chest pain. Did complain of orthopnea and paroxysmal nocturnal dyspnea. She stated that she has been sleeping in her recliner, cannot sleep in her bed. She also complained of malaise and palpitation. She is known to have history of atrial fibrillation in the past and has been on Eliquis; however, there is no history of any change in medication or excessive caffeine. Does have a history of anemia, type 2 diabetes mellitus and congestive heart failure. Denied any recent travel or specific ill contact. She follows with Dr. Susan Ambrose as a primary care physician. She was extensively investigated in the Emergency Room and apparently her EKG showed that she was in atrial fibrillation with rapid ventricular response and was admitted with acute congestive heart failure, anemia, and possible urinary tract infection. In the Emergency Room, D-dimer was normal at 0.32. Urinalysis showed that there was trace of leukocyte esterase, no rbc's, and more than 40 wbc's and moderate amount of bacteria. Her chest x-ray showed the patient has cardiomegaly and mild pulmonary haziness indicating probably edema or infiltrate; however, there is no pleural effusion. The patient was treated with bolus of Cardizem and Cardizem drip and was seen in consultation by the splitting machine tender. She was treated with IV ceftriaxone for possible UTI and her carvedilol was switched to metoprolol and she continued to require IV Lasix; however, when I saw her today, she was sitting propped up in bed, in no apparent distress. She is definitely awake, alert, stated that she has been up and about, has been in the chair, has walked with a walker with physical therapy and feels that she is strong enough to go home with home health. PHYSICAL EXAMINATION: GENERAL: When I examined her, she was pale, but no jaundice, cyanosis or thyromegaly. No jugular venous distension. No lower limb edema. VITAL SIGNS: Her heart rate was 79, blood pressure was 125/57, temperature was 98, respiratory rate 20, and oxygen saturation was 99% on 2 liters of oxygen. HEAD, EYES, EARS, NOSE AND THROAT: Showed normocephalic, atraumatic. NECK: Supple. HEART: Showed normal first and second heart sounds. No gallop, rub or murmur. CHEST: Clear to auscultation. No crepitation or rhonchi. ABDOMEN: Distended, soft, nontender. NEUROLOGIC: She is awake, alert, responding appropriately. All cranial nerves intact. EXTREMITIES: She moves extremities without difficulty. She ambulates with a walker. LABORATORY DATA: This morning showed a white cell count of 8800, hemoglobin 7.7, hematocrit 24, MCV 86 and platelet count 112,000. Her chemistry showed a serum sodium of 141, potassium 4.1, chloride 103, bicarbonate 29, anion gap of 9, BUN 21, creatinine 1.1, estimated GFR was 48 mL per minute. Her glucose 123, calcium was 8.8. Total bilirubin, AST, ALT, alkaline phosphatase were normal. Total protein 6.7, albumin 3.1. The patient has 2 sets of cardiac enzymes that ruled out acute myocardial infarction. DISCHARGE MEDICATIONS: She was discharged home to continue on metoprolol 25 mg twice a day, famotidine 40 mg once a day, levothyroxine sodium 50 mcg once a day, atorvastatin 5 mg at bedtime, pioglitazone 15 mg at bedtime, mirtazapine 7.5 mg at bedtime, apixaban 5 mg twice a day, lactobacillus rhamnosus 1 capsule twice a day, albuterol and Atrovent 1 puff 4 times a day, aspirin 81 mg once a day. FINAL DISCHARGE DIAGNOSES: 1. Atrial fibrillation with rapid ventricular response, now rate controlled, off Cardizem drip. She is on metoprolol 25 mg twice a day. She is well anticoagulated on apixaban. 2. Acute on chronic, probably diastolic congestive heart failure, clinically compensated. 3. Hypomagnesemia, resolved. 4. Hypertension. 5. Hyperlipidemia. 6. Anemia. The patient was discharged home with home health. She should follow with her primary care physician. LUDY VICTOR MD DR: EVENS/blane JOB#: [id number] / [id number]
== END 2020-10-27 15:15 | disposition home health service (06) | DRG 308 ==
LOC: ER 20:27 → ICU 10-25 01:34
PROVIDERS: ADMIT Internal Medicine; ATTEND Internal Medicine
DX: I48.0 Paroxysmal atrial fibrillation (principal); I50.33 Acute on chronic diastolic (congestive) heart failure; N39.0 Urinary tract infection, site not specified; D64.9 Anemia, unspecified; E03.9 Hypothyroidism, unspecified; E11.65 Type 2 diabetes mellitus with hyperglycemia; E78.5 Hyperlipidemia, unspecified; E83.42 Hypomagnesemia; I11.0 Hypertensive heart disease with heart failure; F32.9 Major depressive disorder, single episode, unspecified; F41.9 Anxiety disorder, unspecified; K21.9 Gastro-esophageal reflux disease without esophagitis; M19.90 Unspecified osteoarthritis, unspecified site; Z96.653 Presence of artificial knee joint, bilateral; Z20.822 Contact with and (suspected) exposure to COVID-19; I25.10 Atherosclerotic heart disease of native coronary artery without angina pectoris; Z79.01 Long term (current) use of anticoagulants; Z80.3 Family history of malignant neoplasm of breast; Z82.49 Family history of ischemic heart disease and other diseases of the circulatory system; Z82.5 Family history of asthma and other chronic lower respiratory diseases; Z83.3 Family history of diabetes mellitus; Z86.718 Personal history of other venous thrombosis and embolism; Z90.710 Acquired absence of both cervix and uterus
CPT/HCPCS: 36415; 71045; 80048; 80053; 80061; 80076; 80307; 81001; 82550; 82728; 83540; 83550; 83690; 83735; 83880; 84443; 84484; 85025; 85027; 85379; 85610; 85730; 87086; 93005; 96365; 96366; 96376; J0696; J1940; J3475; J3490; U0003; 97530; 99285-25

== ENCOUNTER → 2020-11-09 | Outpatient (CLI) | payer MEDICARE, MEDICAID ==
[2020-10-27 10:36] VITALS: BP 125/57
[~2020-11-09] MED LIST: APIX5TAB3 PO; CARV6.2541 PO; FAMO40TA4 PO; LEVO50TA5 PO; LOVA20TA2 PO; METO25TA4 PO; MIRT7.5T8 PO; PIOG15TA42 PO
--- NOTE | 2020-11-09 13:35 | CARD ---
MR#: [id number] Date of Study: 11/09/2020 Ordering Physician: BI HARP, Referring Physician: BI HARP, Tech: Tamar Bassett, [facility] APPROVED REPORT EXAM: Two-dimensional and M-mode echocardiogram with Doppler and color Doppler. Other Information Quality : AverageHR: 122bpm Technically limited study due to body habitus. INDICATION Atrial Fibrillation Congestive Heart Failure RISK FACTORS Hypertension Hyperlipidemia Diabetes 2D DIMENSIONS RVDd3.1 (2.9-3.5cm)Left Atrium(2D)4.3 (1.6-4.0cm) IVSd1.2 (0.7-1.1cm)Aortic Root(2D)3.2 (2.0-3.7cm) LVDd4.6 (3.9-5.9cm)LVOT Diameter2.0 (1.8-2.4cm) PWd1.1 (0.7-1.1cm)LVDs3.2 (2.5-4.0cm) FS (%) 30.3 %SV57.5 ml LVEF(%)57.8 (>50%) Aortic Valve AoV Peak Pk.140.9cm/sAoV VTI31.0cm AO Peak GR.7.9mmHgLVOT Peak Pk.122.7cm/s LVOT VTI 25.17cmAO Mean GR.5mmHg REGINE (VMAX)2.01kq9GFP (VTI)2.67cm2 Mitral Valve MV E Bqobdfmx574.4cm/sMV DECEL RZLT501th MV A Fzvkinsu08.7cm/sE/A Ratio2.6 Pulmonary Valve PV Peak Eidbiaan93.0cm/sPV Peak Grad.2mmHg Tricuspid Valve TR P. Jyxrspla234sg/sRAP [id number] TR Peak Gr.17tgVyGXVD19ugQh LEFT VENTRICLE The left ventricle is normal size. There is mild concentric left ventricular hypertrophy. The left ve ntricular systolic function is normal and the ejection fraction is within normal range. The Ejection Fraction is 50-55%. There is normal LV segmental wall motion. Tissue Doppler imaging reveals moderate left ventricular diastolic dysfunction. RIGHT VENTRICLE The right ventricle is normal size. There is normal right ventricular wall thickness. The right ventr icular systolic function is normal. ATRIA The left atrium is moderately dilated. The right atrium is moderately dilated. The interatrial septum is intact with no evidence for an atrial septal defect or patent foramen ovale as noted on 2-D or Do ppler imaging. AORTIC VALVE The aortic valve is thickened but opens well. Doppler and Color Flow revealed no significant aortic r egurgitation. There is no significant aortic valvular stenosis. Calculated aortic valve area is 3.1 c m2 with maximum pressure gradient of 8 mmHg and mean pressure gradient of 5 mmHg. MITRAL VALVE Mitral annular calcification is mild. There is no evidence of mitral valve prolapse. There is no mitr al valve stenosis. Doppler and Color-flow revealed trace mitral regurgitation. TRICUSPID VALVE The tricuspid valve is normal in structure and function. Doppler and Color Flow revealed trace tricus pid regurgitation with an estimated PAP 56 mmHg. There is no tricuspid valve stenosis. PULMONIC VALVE The pulmonic valve is not well visualized. Doppler and Color Flow revealed trace pulmonic valvular re gurgitation. There is no pulmonic valvular stenosis. GREAT VESSELS The aortic root is normal in size. The ascending aorta is mildly dilated measuring 3.6 cm. The IVC is dilated. PERICARDIAL EFFUSION There is no evidence of significant pericardial effusion. Critical Notification Critical Value: No <Conclusion> The left ventricular systolic function is normal and the ejection fraction is within normal range. Th e Ejection Fraction is 50-55%. There is normal LV segmental wall motion. Doppler and Color Flow revealed trace tricuspid regurgitation with an estimated PAP 56 mmHg. The ascending aorta is mildly dilated measuring 3.6 cm. Signed by : Bi Harp, Electronically Approved : 11/09/2020 13:35:10
== END ==
LOC: ECHO 08:53
PROVIDERS: ATTEND Internal Medicine Cardiovascular Disease
DX: I50.9 Heart failure, unspecified (principal); I51.7 Cardiomegaly
CPT/HCPCS: 93306

== ENCOUNTER → 2020-12-24 | Outpatient (CLI) | payer MEDICARE, MEDICAID ==
[2020-12-24 16:40] LABS: BASO # 0.1 x10^3/uL (0.0-0.2); BASO % 1 % (0-3); EOS # 0.1 x10^3/uL (0.0-0.7); EOS % 1 % (0-3); HEMATOCRIT 30.5 % (36.0-47.0); HEMOGLOBIN 9.8 g/dL (12.0-15.5); LYMPH # 1.3 x10^3/uL (1.0-4.8); LYMPH % 15 % (24-48); MEAN CORPUSCULAR HEMOGLOBIN 27 pg (25-35); MEAN CORPUSCULAR HGB CONC 32 g/dL (31-37); MEAN CORPUSCULAR VOLUME 85 fL (79-100); MONO # 0.9 x10^3/uL (0.0-1.1); MONO % 11 % (0-9); NEUT # 6.1 x10^3uL (1.8-7.7); NEUT % 72 % (31-73); PLATELET COUNT 282 x10^3/uL (140-400); RED BLOOD COUNT 3.59 x10^6/uL (3.50-5.40); RED CELL DISTRIBUTION WIDTH 22.4 % (11.5-14.5); WHITE BLOOD COUNT 8.4 x10^3/uL (4.0-11.0)
[2020-12-24 17:54] LABS: % EOS 1 % (0-5); % LYMPHS 17 % (24-48); % MONOS 7 % (0-10); % SEGS 75 % (35-66); ANISOCYTOSIS MOD; PLT ESTIMATE ADEQUATE (ADEQUATE)
[2020-12-25 02:12] LABS: HAPTOGLOBIN 204 mg/dL (42-346)
== END ==
LOC: LAB 15:04
PROVIDERS: ATTEND Internal Medicine Hematology & Oncology
DX: D64.9 Anemia, unspecified (principal)
CPT/HCPCS: 36415; 82525; 82668; 82728; 83010; 83520; 83540; 83550; 84165; 85007; 85025; 85045

== ENCOUNTER → 2021-05-19 | Outpatient (CLI) | payer MEDICARE, MEDICAID ==
[2021-05-19 16:46] LABS: BASO # 0.1 x10^3/uL (0.0-0.2); BASO % 1 % (0-3); EOS # 0.1 x10^3/uL (0.0-0.7); EOS % 1 % (0-3); HEMATOCRIT 39.4 % (36.0-47.0); HEMOGLOBIN 13.1 g/dL (12.0-15.5); LYMPH # 1.5 x10^3/uL (1.0-4.8); LYMPH % 20 % (24-48); MEAN CORPUSCULAR HEMOGLOBIN 32 pg (25-35); MEAN CORPUSCULAR HGB CONC 33 g/dL (31-37); MEAN CORPUSCULAR VOLUME 97 fL (79-100); MONO # 0.8 x10^3/uL (0.0-1.1); MONO % 10 % (0-9); NEUT # 5.2 x10^3uL (1.8-7.7); NEUT % 68 % (31-73); PLATELET COUNT 224 x10^3/uL (140-400); RED BLOOD COUNT 4.07 x10^6/uL (3.50-5.40); RED CELL DISTRIBUTION WIDTH 14.7 % (11.5-14.5); WHITE BLOOD COUNT 7.6 x10^3/uL (4.0-11.0)
[2021-05-19 16:52] LABS: ALBUMIN 3.6 g/dL (3.4-5.0); ALBUMIN/GLOBULIN RATIO 0.9 (1.0-1.7); CALCIUM 9.1 mg/dL (8.5-10.1); GFR 53.8; POTASSIUM 3.9 mmol/L (3.5-5.1); TOTAL BILIRUBIN 0.3 mg/dL (0.2-1.0); TOTAL PROTEIN 7.8 g/dL (6.4-8.2)
== END ==
LOC: LAB 15:56
PROVIDERS: ATTEND Internal Medicine Cardiovascular Disease
DX: I10 Essential (primary) hypertension (principal)
CPT/HCPCS: 36415; 80053; 80061; 85025

== ENCOUNTER → 2021-10-14 | Outpatient (CLI) | payer MEDICARE, MEDICAID ==
[2021-10-14 16:19] LABS: BASO # 0.1 x10^3/uL (0.0-0.2); BASO % 1 % (0-3); EOS # 0.1 x10^3/uL (0.0-0.7); EOS % 1 % (0-3); HEMOGLOBIN 13.8 g/dL (12.0-15.5); LYMPH # 1.7 x10^3/uL (1.0-4.8); LYMPH % 25 % (24-48); MEAN CORPUSCULAR HEMOGLOBIN 33 pg (25-35); MEAN CORPUSCULAR HGB CONC 33 g/dL (31-37); MEAN CORPUSCULAR VOLUME 100 fL (79-100); MONO # 0.6 x10^3/uL (0.0-1.1); MONO % 10 % (0-9); NEUT # 4.2 x10^3uL (1.8-7.7); NEUT % 63 % (31-73); PLATELET COUNT 233 x10^3/uL (140-400); RED BLOOD COUNT 4.19 x10^6/uL (3.50-5.40); WHITE BLOOD COUNT 6.6 x10^3/uL (4.0-11.0)
== END ==
LOC: LAB 15:18
PROVIDERS: ATTEND Internal Medicine Hematology & Oncology
DX: D50.0 Iron deficiency anemia secondary to blood loss (chronic) (principal)
CPT/HCPCS: 36415; 83540; 83550; 85025

== ENCOUNTER → 2021-11-16 | Outpatient (CLI) | payer MEDICARE, MEDICAID ==
--- NOTE | 2021-11-16 16:08 | CARD ---
MR#: [id number] Date of Study: 11/16/2021 Ordering Physician: BI MOREL, Referring Physician: BI MORLE, Tech: [facility] APPROVED REPORT EXAM: Two-dimensional and M-mode echocardiogram with Doppler and color Doppler. Other Information Quality : GoodHR: 105bpm Rhythm : Atrial Fibrillation INDICATION Pre-Op Surgery/Intervention Pacemaker: RISK FACTORS Hypertension Obesity 2D DIMENSIONS Left Atrium(2D)4.4 (1.6-4.0cm)IVSd1.2 (0.7-1.1cm) Aortic Root(2D)3.3 (2.0-3.7cm)LVDd4.5 (3.9-5.9cm) LVOT Diameter1.9 (1.8-2.4cm)PWd1.2 (0.7-1.1cm) LA Uvoxas87 (18-58mL)LVDs2.9 (2.5-4.0cm) FS (%) 35.4 %SV59.6 ml LVEF(%)65.0 (>50%) Aortic Valve AoV Peak Pk.116.3cm/sAoV VTI23.6cm AO Peak GR.5.4mmHgLVOT Peak Pk.92.9cm/s LVOT VTI 15.45cmAO Mean GR.3mmHg REGINE (VMAX)2.25oh4HOC (VTI)1.91cm2 Mitral Valve MV E Ebvysmmt951.7cm/sMV E Peak Gr.8mmHg MV DECEL [id number] A Upafofbg90.7cm/s MV E Mean Gr.3mmHgE/A Ratio3.4 Pulmonary Valve PV Peak Bktoeivy60.8cm/sPV Peak Grad.3mmHg Tricuspid Valve TR P. Auulsypt892lp/sTR Peak Gr.37mmHg Pulmonary Vein S1 [place]sey04.7cm/sD2 Rzubccad96.6cm/s LEFT VENTRICLE The left ventricle is normal size. There is mild concentric left ventricular hypertrophy. The left ve ntricular systolic function is normal. The ejection fraction is 55-60%. There is normal LV segmental wall motion. Diastolic function unable to be assessed due to atrial fibrillation. No left ventricle t hrombus noted on this study. There is no ventricular septal defect visualized. There is no left ventr icular aneurysm. There is no mass noted in the left ventricle. RIGHT VENTRICLE The right ventricle is borderline dilated. There is normal right ventricular wall thickness. The righ t ventricular systolic function is normal. ATRIA The left atrium is mildly dilated. The right atrium is borderline dilated. The interatrial septum is intact with no evidence for an atrial septal defect or patent foramen ovale as noted on 2-D or Dopple r imaging. AORTIC VALVE The aortic valve is mildly calcified. Doppler and Color Flow revealed no significant aortic regurgita tion. There is no significant aortic valvular stenosis. There is no aortic valvular vegetation. MITRAL VALVE Mitral annular calcification is mild. The mitral valve is thickened but opens well. There is no evide nce of mitral valve prolapse. There is no mitral valve stenosis. Doppler and Color-flow revealed mild mitral regurgitation. TRICUSPID VALVE The tricuspid valve is normal in structure and function. Doppler and Color Flow revealed mild to mode rate tricuspid regurgitation. The PA pressure was estimated at 40-45 mmHg. There is no tricuspid valv e prolapse or vegetation. There is no tricuspid valve stenosis. PULMONIC VALVE The pulmonary valve is normal in structure and function. Doppler and Color Flow revealed no pulmonic valvular regurgitation. There is no pulmonic valvular stenosis. GREAT VESSELS The aortic root is normal in size. The ascending aorta is normal in size. The pulmonary artery is nor mal. The IVC is normal in size and collapses >50% with inspiration. PERICARDIAL EFFUSION There is no pleural effusion. There is no evidence of significant pericardial effusion. Critical Notification Critical Value: No <Conclusion> The left ventricular systolic function is normal. The ejection fraction is 55-60%. There is normal LV segmental wall motion. Mild mitral regurgitation. Mild to moderate tricuspid regurgitation. The PA pressure was estimated at 40-45 mmHg. There is no evidence of significant pericardial effusion. Signed by : Amaury Bass, Electronically Approved : 11/16/2021 16:07:36
== END ==
LOC: ECHO 12:48
PROVIDERS: ATTEND Internal Medicine Cardiovascular Disease
DX: I08.3 Combined rheumatic disorders of mitral, aortic and tricuspid valves (principal); I48.91 Unspecified atrial fibrillation
CPT/HCPCS: 93306